=== PATIENT | female | born 1980 | race African-American/Black ===

== ENCOUNTER → 2020-07-04 | Day surgery (SDC) | payer OTHER ==
[~2020-07-04] MED LIST: AMLODIPINE-BEN1 EACH PO; COLACE100 MG PO; FEOSOL325 MG PO; HCTZ25 MG PO; IBUPROFEN800 M1 PO; IBUPROFEN800 MG PO; ONDANSETRON HCL4 MG PO; PERCOCET 5-3251 EACH PO
[2020-07-04 09:03] LABS: HCG (URINE) SCREEN NEGATIVE (NEGATIVE)
[2020-07-04 09:33] LABS: ALBUMIN 3.9 g/dL (3.4-5.0); BILIRUBIN - TOTAL 0.7 mg/dL (0.2-1.0); BUN/CREAT RATIO (CALC) 19.8 RATIO; CREATININE 0.86 mg/dL (0.51-0.95); GLOBULIN (CALCULATION) 3.6 g/dL; POTASSIUM 3.8 mmol/L (3.5-5.1); TOTAL PROTEIN 7.5 g/dL (6.4-8.2)
== END | disposition home or self-care (01) ==
LOC: FAS 08:23
PROVIDERS: Obstetrics & Gynecology
DX: N93.9 Abnormal uterine and vaginal bleeding, unspecified (principal); N88.2 Stricture and stenosis of cervix uteri; I10 Essential (primary) hypertension; Z88.8 Allergy status to other drugs, medicaments and biological substances; Z79.899 Other long term (current) drug therapy; Z87.442 Personal history of urinary calculi; Z82.49 Family history of ischemic heart disease and other diseases of the circulatory system; Z85.59 Personal history of malignant neoplasm of other urinary tract organ; Z83.3 Family history of diabetes mellitus; Z87.891 Personal history of nicotine dependence
CPT/HCPCS: 36415; 80053; 84703; J1100; J1885; J2250; J2405; J2704; J3010; J7120